=== PATIENT | male | born 1970 | race Caucasian/White ===

== ENCOUNTER → 2018-10-15 | Outpatient (CLI) | payer BC ==
[2018-10-15 15:32] LABS: ABG BASE EXCESS -1.2 MMOL/L (-2.5-2.5); ABG OXYGEN SATURATION 97 % (94-100); ABG PCO2 37 MMHG (35-45); ABG PH 7.41 (7.37-7.43); ABG PO2 77 MMHG (79-93); ABG TCO2 24.2 MMOL/L (21.0-31.0); ALLENS TEST POSITIVE; VENTILATOR NO
[2018-10-15 15:33] LABS: PATIENT TEMP 96.7
[2018-10-16 06:08] LABS: ALTERNARIA MOLD RAST <0.35 kU/L (<0.35); RAGWEED RAST <0.35 kU/L (<0.35)
== END ==
LOC: PULM 14:08
PROVIDERS: ATTEND Nurse Practitioner Family
DX: J45.909 Unspecified asthma, uncomplicated (principal); G47.33 Obstructive sleep apnea (adult) (pediatric); R06.89 Other abnormalities of breathing; R06.00 Dyspnea, unspecified; R05 Cough
CPT/HCPCS: 36415; 36600; 82785; 82805; 86003

== ENCOUNTER → 2018-11-22 | Outpatient (CLI) | payer BC ==
--- NOTE | 2018-11-22 09:30 | Diagnostic Imaging Report ---
PROCEDURE: CT chest without contrast. TECHNIQUE: Multiple contiguous axial images were obtained through the chest without the use of intravenous contrast. Auto Exposure Controls were utilized during the CT exam to meet ALARA standards for radiation dose reduction. INDICATION: Asthma, shortness of there are and chest tightness. No prior studies are available for comparison. No axillary lymphadenopathy is seen. No definite hilar or mediastinal lymphadenopathy is detected. There are coronary arterial calcifications. No pericardial or pleural fluid is seen. Lungs appear to be fairly clear. Subpleural nodules left lower lobe measuring 3 and 4 mm in size. Central airways are patent. There is no infiltrate seen. Upper abdomen is unremarkable. There is some questionable circumferential wall thickening of the esophagus, nonspecific. IMPRESSION: Essentially unremarkable CT of the chest. No acute feature is seen. There is some circumferential thickening of the esophagus. If clinically indicated, endoscopy could be performed. Dictated by: Dictated on workstation # [id number]
== END ==
LOC: RAD 08:50
PROVIDERS: ATTEND Nurse Practitioner Family
DX: J45.909 Unspecified asthma, uncomplicated (principal); G47.33 Obstructive sleep apnea (adult) (pediatric)
CPT/HCPCS: 71250

== ENCOUNTER → 2018-12-11 | Outpatient (CLI) | payer BC ==
[~2018-12-11] MED LIST: RT-ALBUTEROL SULF 2.5 MG/3 ML PRE-MIX VIAL INH ONE
== END ==
LOC: RT 15:07
PROVIDERS: ATTEND Nurse Practitioner Family
DX: J45.909 Unspecified asthma, uncomplicated (principal); G47.33 Obstructive sleep apnea (adult) (pediatric); J30.9 Allergic rhinitis, unspecified
CPT/HCPCS: 94060; 94726; 94729

== ENCOUNTER 2018-12-19 07:15 | Day surgery (SDC) | payer BC ==
[2018-12-19] VITALS (14 sets, daily range): BP systolic 135–194; BP diastolic 68–98
[~2018-12-19] VITALS: Ht 177.8 cm; Wt 123.9 kg
[2018-12-19] MEDS ORDERED: LIDOCAINE PF 2% 5 ML (XYLOCAINE) VIAL INJ ONE (07:16)
[2018-12-19] MEDS ORDERED: LIDOCAINE JELLY 2% 6 ML SYRINGE MM ONE (07:16)
[2018-12-19] MEDS ORDERED: LIDOCAINE PF 1% 2 ML VIAL IJ ONE (07:16)
[2018-12-19] MEDS ORDERED: NS IV 500 ML 500 ML IV PRN (07:23)
[2018-12-19] MEDS ORDERED: fentaNYL INJECTION 100 MCG/2 ML AMP IVP ONE (07:30)
[2018-12-19] MEDS ORDERED: MIDAZOLAM 2 MG/2 ML (VERSED) VIAL IVP ONE (07:30)
[2018-12-19] MEDS ORDERED: MONT10TA24 PO (08:00)
[2018-12-19] MEDS ORDERED: OMEP20TA7 PO (08:00)
[2018-12-19] MEDS ORDERED: CETI10TA17 PO (08:00)
[2018-12-19] MEDS ORDERED: FLUT1BLS IH (08:00)
[2018-12-19] MEDS ORDERED: FLUT9.9S NS (08:00)
[2018-12-19] MEDS ORDERED: ALBU10PO MC (08:00)
[2018-12-19] MEDS ORDERED: MIDAZOLAM 2 MG/2 ML (VERSED) VIAL ONE ×3 (08:12)
[2018-12-19] MEDS ORDERED: fentaNYL INJECTION 100 MCG/2 ML AMP ONE ×2 (08:12→08:13)
--- NOTE | 2018-12-19 08:14 | Progress Note-Pre Operative ---
Pre-Operative Progress Note H&P Reviewed The H&P was reviewed, patient examined and no changes noted. Date Seen by Provider: Dec 19, 2018 Time Seen by Provider: 08:14 Date H&P Reviewed: Dec 19, 2018 Time H&P Reviewed: 08:14 Pre-Operative Diagnosis: Cough BRENDA FRASER DO Dec 19, 2018 08:14
--- NOTE | 2018-12-19 08:14 | Pre-Op Note & Conscious Sedat ---
Pre-Operative Progress Note H&P Reviewed The H&P was reviewed, patient examined and no changes noted. Date H&P Reviewed: Dec 19, 2018 Time H&P Reviewed: 08:14 Conscious Sedation Pre-Proced Time 08:14 ASA Score 3 For ASA 3 and 4: Consider anesthesia and medical clearance. Also, for patients with a history of failed moderate sedation consider anesthesia. Airway Lungs Heart ASA score ASA 1: a normal healthy patient ASA 2: a patient with a mild systemic disease (mid diabetes, controlled hypertension, obesity ASA 3: a patient with a severe systemic disease that limits activity (angina, COPD, prior Myocardial infarction) ASA 4: a patient with an incapacitating disease that is a constant threat to life (CHF, renal failure) ASA 5: a moribund patient not expected to survive 24 hrs. (ruptured aneurysm) ASA 6: a declared brain- patient whose organs are being harvested. For emergent operations, add the letter E after the classification Mallampati Classification Grade 3 Sedation Plan Analgesia, Amnesia, Plan communicated to team members, Discussed options with patient/fam, Discussed risks with patient/fam The patient is an appropriate candidate to undergo the planned procedure, sedation, and anesthesia. The patient immediately re-assessed prior to indication. BRENDA FRASER DO Dec 19, 2018 08:14
--- NOTE | 2018-12-19 09:22 | Diagnostic Imaging Report ---
INDICATION: Status post bronchoscopy. TIME OF EXAM: 9:00 AM No prior studies are available for comparison. FINDINGS: The lungs are clear. No pneumothorax is identified, status post bronchoscopy. Pulmonary vascularity is normal. No effusion or pneumothorax is seen. The heart size is unremarkable. IMPRESSION: No evidence of pneumothorax, status post bronchoscopy. Dictated by: Dictated on workstation # [id number]
--- NOTE | 2018-12-19 13:51 | Diagnostic Imaging Report ---
INDICATION: Fluoroscopy for bronchoscopy. FINDINGS: Fluoroscopy was provided for Dr. Vázquez during bronchoscopy. 4 seconds of fluoroscopic time was utilized. IMPRESSION: Fluoroscopy for bronchoscopy. Dictated by: Dictated on workstation # [id number]
--- NOTE | 2019-01-03 12:29 | Pulmonary Procedures ---
Pulmonary Procedures Date of Procedure Date of Service: Dec 19, 2018 Bronch Bronchoscopy with Fluoroscopy RML bronchoalveolar lavage (BAL), Bilateral washes and, transbronchial brushes. Preop DX Persistent cough Postop DX: same Complications: none After informed consent obtained and formal time out pt was sedated using Fentanyl and Versed. Bronchoscope was advanced through the nare and vocal cords. 1% lidocaine was used to anesthetize vocal cords, epiglottis, luz, and left/right main stem bronchus. An anatomical tour was undertaken down to the segmental bronchi bilaterally. No endobronchial lesions noted. From the RML a bronchoalveolar lavage (BAL), transbronchial washes and, brushes were obtained. Pt tolerated procedure well. No complications noted. Stat CXR is pending. BRENDA FRASER DO Jan 03, 2019 12:29
== END 2018-12-19 09:55 ==
LOC: ENDO 07:15
PROVIDERS: ATTEND Internal Medicine Critical Care Medicine
DX: J45.909 Unspecified asthma, uncomplicated (principal); R06.00 Dyspnea, unspecified; G47.33 Obstructive sleep apnea (adult) (pediatric); K21.9 Gastro-esophageal reflux disease without esophagitis; I10 Essential (primary) hypertension; M51.26 Other intervertebral disc displacement, lumbar region; F32.9 Major depressive disorder, single episode, unspecified; F41.0 Panic disorder [episodic paroxysmal anxiety]; Z88.8 Allergy status to other drugs, medicaments and biological substances; Z79.899 Other long term (current) drug therapy; Z87.891 Personal history of nicotine dependence
CPT/HCPCS: 71045; 87015; 87070; 87101; 87116; 87205; 87206; 88112; 88305; 88312; 94640

== ENCOUNTER 2019-01-08 10:53 | Outpatient (CLI) | payer BC ==
[~2019-01-08 10:53] MED LIST changes: +ALBU10PO MC; +CETI10TA17 PO; +FLUT1BLS IH; +FLUT9.9S NS; +MONT10TA24 PO; +OMEP20TA7 PO; -RT-ALBUTEROL SULF 2.5 MG/3 ML PRE-MIX VIAL INH ONE
== END 2019-01-08 13:06 | disposition home or self-care (01) ==
LOC: CARD 10:53
PROVIDERS: ATTEND Nurse Practitioner Family
DX: J45.909 Unspecified asthma, uncomplicated (principal); G47.33 Obstructive sleep apnea (adult) (pediatric)
CPT/HCPCS: 93306

== ENCOUNTER → 2019-02-27 | Outpatient (CLI) | payer BC ==
[~2019-02-27] VITALS: Ht 177 cm; Wt 125.0 kg
[~2019-02-27] MED LIST changes: +CATHETER FLUSH 10 ML SYR IV PRN; +REGADENOSON 0.4 MG/5 ML SYR (LEXISCAN) IV ONE
[2019-02-27 12:51] VITALS: BP 146/78
[2019-02-27 12:54] VITALS: BP 171/76
== END ==
LOC: CARD 10:13
PROVIDERS: ATTEND Internal Medicine Interventional Cardiology
DX: I11.9 Hypertensive heart disease without heart failure (principal); I51.89 Other ill-defined heart diseases; G47.33 Obstructive sleep apnea (adult) (pediatric); Z72.0 Tobacco use
CPT/HCPCS: 78452; 93017